=== PATIENT | female | born 1960 | race Two or more races ===

== ENCOUNTER 2024-10-11 05:45 | Day surgery (SDC) | payer MEDICARE, MEDICAID, SELFPAY ==
[2024-10-10 10:36] VITALS: BMI 25.2
--- NOTE | 2024-10-10 10:55 | EKG_ITS ---
[facility] Test Date: 2024-10-10 Pat Name: ANGELA MURILLORESDepartment: Room: - Gender: Female Sql Engineer: RAUL : 1960 Requested By: Ish Helms Order Number: [id number] Reading MD: Ish Helms Measurements Intervals [place] Rate: 57 P: 49 ND: 160 QRS: 84 QRSD: 80 T: 62 QT: 415 QTc: 406 Interpretive Statements SINUS BRADYCARDIA LOW QRS VOLTAGE IN PRECORDIAL LEADS [QRS DEFLECTION < 1.0 mV IN CHEST LEADS] No previous ECG available for comparison /[id number]/S0/[id number]
[2024-10-10 12:30] LABS: Basophils % (Auto) 0 % (0-2.5); Eosinophils # (Auto) 0.1 Thou/mm3 (0.0-0.5); Eosinophils % (Auto) 2 % (0-10); Hematocrit 36.5 % (36.0-46.0); Hemoglobin 12.7 g/dL (12.0-16.0); Immature Granulocytes % (Auto) 0 % (0-0); Immature Granulocytes Auto 0.02 Thou/mm3 (0.00-0.00); Lymphocytes # (Auto) 1.8 Thou/mm3 (1.0-4.8); Lymphocytes % (Auto) 32 % (10-50); Mean Corpuscular HGB Conc 34.8 g/dl (31.0-37.0); Mean Corpuscular Hemoglobin 30.5 pg (25.0-35.0); Mean Corpuscular Volume 88 fL (80-100); Monocytes # (Auto) 0.5 Thou/mm3 (0.0-0.8); Monocytes % (Auto) 8 % (0-12); Neutrophils # (Auto) 3.2 Thou/mm3 (1.8-7.7); Neutrophils % (Auto) 58 % (37-80); Nucleated Red Blood Cell % 0 /100 WBC (0); Platelet Count 223 Thou/mm3 (140-440); RDW Standard Deviation 38.7 fL (36.4-46.3); Red Blood Count 4.17 Miln/mm3 (4.00-5.20); White Blood Count 5.6 Thou/mm3 (3.6-11.0)
[2024-10-10 12:37] LABS: Partial Thromboplastin Time 27.3 Seconds (22.0-36.0)
[2024-10-11] VITALS (9 sets, daily range): BP systolic 133–156; BP diastolic 62–99; PULSE 64–88; RESP 13–20; TEMP 36.2–36.6; O2SAT 99–100; BMI 24.8
[2024-10-11 06:57] LABS: Alanine Aminotransferase 15 U/L (10-49); Albumin/Globulin Ratio 1.8 (1.2-2.2); Alkaline Phosphatase 95 U/L (46-116); Anion Gap 6 (7-16); Aspartate Amino Transferase 16 U/L (0-34); BUN/Creatinine Ratio 13 Ratio (12-20); Bilirubin,Total 0.6 mg/dL (0.3-1.2); Blood Urea Nitrogen 10 mg/dL (9-23); Carbon Dioxide 27.5 mMol/L (20.0-31.0); Chloride 107 mMol/L (98-107); Creatinine (Component) 0.8 mg/dL (0.6-1.3); Estimated Creatinine Clearance 63.4 mL/min (>60); Globulin 2.2 gm/dL (2.3-3.5); Glucose 105 mg/dL (74-106); Osmolality,Calculated 278 (275-295); Sodium 140 mMol/L (136-145); Total Protein 6.2 gm/dL (5.7-8.2); eGFR > 60 See Note
[2024-10-11] MEDS: RINGERS LACTATED 1000 ML 1,000 ML 20 ML IV (07:02)
--- NOTE | 2024-10-11 07:38 | SUR.PREOP ---
Patient expressed gratitude for prayer before their procedure.
--- NOTE | 2024-10-11 09:39 | SUR.PHASEI ---
0998 Patient arrived to recovery resting comfortably in [facility], on oxygen 8L via oxy mask, breathing unlabored, vital signs stables, dressing pain, dressing intact to abdomen; dissolvable sutures, gauze, medipore tape, no bleeding noted, denies nausea, report received from Dr. Benito and [place] SUÁREZ
--- NOTE | 2024-10-11 09:45 | PD.SUROPNT ---
Date of Procedure 10/11/24 Pre Op Diagnosis Symptomatic cholelithiasis Post Op Diagnosis Same Procedure Laparoscopic cholecystectomy Findings Patient was found to have a noninflamed gallbladder with few stones Procedure Description After endotracheal anesthesia was given the patient was placed in supine position and the abdomen was prepped with chloroprep solution and draped in a sterile manner. After time out was performed I injected a few cc of of half percent Marcaine with epinephrine below the umbilicus and I made an incision for about 3 cm in length. The fascia was cleaned and Veress needle was inserted to create a pneumoperitoneum up to 15 mmHg. Then introduced a 12 mm trocar and a 10 mm camera through the fascia and I inspected the intra-abdominal organs as well as the gallbladder and the liver. Another 5 mm trocar was inserted in the epigastric region under direct vision after injecting some local anesthesia. At this time the patient was kept in reverse Trendelenburg position with the left lateral tilt. The third 5 mm trocar was inserted over the mid axillary line under direct vision and a Pedro and Nia grasper was used to hold the fundus of the gallbladder. The retraction was carried out by the family law legal assistant moving the fundus of the gallbladder towards the right shoulder of the patient to create enough traction. I placed a another 5 mm trocar in the midaxillary line just lateral to the rectus muscle under direct vision. I used a fenestrated grasper to retract the neck of the gallbladder laterally towards the patient's right hip. The Calot's triangle was exposed and I achieved the critical view of safety as follows: I dissected out the fatty tissue from the hepatocystic triangle and cleared this area. I also dissected inferior and posterior to the gallbladder to identify the cystic duct and the gallbladder wall. Then superiorly I dissected along the cystic plate up to lower one third third of the gallbladder to lift the gallbladder from the liver. At this time I confirmed that only 2 structures entering the gallbladder were cystic artery and the cystic duct. The common duct was seen distally but no dissection was carried out around the duct. I did not see any need for operative cholangiogram in this patient. The cystic duct was clipped doubly and then divided and cystic artery was similarly dealt with. Then the gallbladder was removed from the liver bed using Harmonic timmy to control the small blood vessels as the dissection proceeded. Then the gallbladder was from the liver bed completely and delivered through the umbilical port using an Endopouch. The liver bed was coagulated with cautery to obtain satisfactory hemostasis. The trocars were pulled out from the abdominal cavity and the fascia at the umbilical incision was closed with interrupted 0 Ethibond. Subcutaneous tissues was closed with 3-0 chromic and injected a few cc of half percent Marcaine with epinephrine and the skin was closed with interrupted 4-0 nylon stitches at all the trocar sites. Dressing was applied with 2 x 2 and Tegaderm. Patient tolerated the procedure well and returned to recovery room in stable condition. Anesthesia GETA Pathology / specimen Other (Gallbladder and the stones) Estimated Blood Loss 40 Condition Stable Disposition PACU Surgeon David Heath MD Surgical Staff Operation Date: 10/11/24 08:00 Case Staff Anesthesiologist: Wes Benito RN First Assistant: Pamela Hutchins
[2024-10-11] MEDS: fentaNYL CIT INJ 50 mCg/ML AMP 2ML 25 MCG IVP ×4 (09:58→10:27)
--- NOTE | 2024-10-11 11:02 | SUR.PHASEII ---
1102 Patient meets discharge criteria from recovery, awake and alert, breathing unlabored, vital signs stable, per patient her pain is tolerable, dressing intact; no bleeding noted, assisted with dressing into her clothing by this repairer typewriter, drinking 7up; denies nausea, discharge instructions given to patient and patients with the assistance of the telephone city treasurer [id number], signed discharge instructions. Patient given all her belongings prior to discharge, transported via wheelchair and left in a private vehicle
== END 2024-10-11 11:02 | disposition home or self-care (01) ==
PROVIDERS: PCP Family Medicine; Referring Provider Surgery; Visit Provider Surgery
PROC: 0FT44ZZ Resection of Gallbladder, Percutaneous Endoscopic Approach (ICD-10-PCS; CPT 47562; principal; 2024-10-11 08:00)
DX: K80.10 Calculus of gallbladder with chronic cholecystitis without obstruction (principal); Z01.810 Encounter for preprocedural cardiovascular examination
CPT/HCPCS: 47562; 36415; 80053; 85025; 85610; 85730; 93005; A4217; A4649; J0131; J0461; J1100; J1885; J2250; J2405; J2704; J3010; J3490; J7120; A9270